=== PATIENT | female | born 1960 | race Caucasian/White ===

== ENCOUNTER → 2018-05-04 11:31 | Outpatient (CLI) | payer OTHER, SELFPAY ==
--- NOTE | 2018-05-04 | DI.CT.S_ITS ---
PROCEDURE: CT ABDOMEN WO/W CON INDICATIONS: UPPER ABDOMINAL PAIN TECHNIQUE: 4 phase scanning was performed. Non-contrast 5 mm axial sections acquired from the diaphragm to the iliac crests. Following the administration of intravenous contrast, 5 mm thick arterial-phase, portal venous-phase, and 5-minute delayed phase images were acquired through the liver. 5 mm thick coronal and sagittal reformats were performed. For radiation dose reduction, the following was used: automated exposure control, adjustment of mA and/or kV according to patient size. COMPARISON: None. FINDINGS: Image quality: Excellent. Lung bases: Lung bases are clear. Heart size is normal. Liver: No abnormality within the liver is found Other solid organs: Gallbladder is filled by numerous small and moderate sized gallstones, peripherally calcified, none of which appear obstructed at this time were associated with biliary distention.. Biliary system is non dilated. Pancreas is normal in morphology. Spleen is normal in size and enhancement. No adrenal nodules. Both kidneys demonstrate normal size and enhancement, without hydronephrosis or nephrolithiasis. Nodes and vessels: No retroperitoneal or mesenteric adenopathy by size criteria. Aorta and inferior vena cava are normal in size. Bowel and peritoneum: Unenhanced bowel loops are normal in caliber. No free fluid or air. Bones: No suspicious bony lesions. No vertebral body compression fractures. Miscellaneous: No ventral hernias. IMPRESSION: Gallbladder is stone filled by numerous small and moderate sized peripherally calcified gallstones but none of these appear associated with acute cholecystitis or biliary obstruction. No bowel abnormalities seen, and no area of active inflammation present. The right upper quadrant chronic pain syndrome almost certainly would be associated with the numerous gallstones present. They are of a size that could easily produce intermittent biliary obstruction or cystic duct obstruction. Dictated by: Fabio Villatoro M.D. on 05/04/2018 at 13:10 Approved by: Fabio Villatoro M.D. on 05/04/2018 at 13:16
== END ==
PROVIDERS: Family Provider Family Medicine; PCP Family Medicine; Visit Provider Family Medicine
DX: K80.80 Other cholelithiasis without obstruction (principal); R10.11 Right upper quadrant pain
CPT/HCPCS: 74170; Q9967

== ENCOUNTER 2018-06-12 08:45 | Day surgery (SDC) | payer OTHER, SELFPAY ==
[2018-06-12] VITALS (12 sets, daily range): BP systolic 99–182; BP diastolic 44–89; PULSE 45–60; RESP 10–16; TEMP 36.2–36.7; O2SAT 95–100
--- NOTE | 2018-06-12 | PATH_ITS ---
[facility] Accession Number: [id number] . 01 Material submitted: . GALLBLADDER . 02 Diagnosis: Gallbladder, Cholecystectomy: Cholelithiasis with mild chronic cholecystitis. One benign lymph node. Negative for dysplasia or malignancy. [facility]/06/14/2018 . 02 Electronically signed: . Federico Bejarano MD, PhD, Pathologist NPI- [id number] . 01 Gross description: . Received in formalin, labeled gallbladder, is an intact gallbladder (length-10.7 cm, diameter 3.3 cm) with green-yellow smooth and shiny serosa and a patent cystic duct. A possible lymph node (0.8 x 0.5 x 0.2 cm) is identified. The lumen contains green gelatinous bile and multiple vital yellow solid firm multifaceted smooth calculi (9.5 x 4.5 x 2.5 cm in aggregate, each approximately 0.7 x 0.7 x 0.7 cm) with dark celina cut surfaces. The mucosa is latham-green smooth and flat. The wall is up to 0.1 cm thick. No nodules, masses or lesions are identified. Section code: (A1) cystic duct resection margin and two serial sections from the body; (A2) two longitudinal sections from the fundus; (A3) one intact lymph node. ([id number]) /[facility] . 02 Pathologist provided ICD-10: K80.60 . 02 CPT . 228095 Performed at: 01 [facility] [address] [id number] MD Jeffry Billingsley MD Phone: [phone] Performed at: 02 [facility] [id number] [place] [id number] MD Davon Nicole MD Phone: [phone]
[2018-06-12] MEDS: LACTATED RINGERS 1,000 ML 100 ML IV (08:00)
--- NOTE | 2018-06-12 09:02 | PM.PREOP ---
Pre-operative Note Interval Note Pre-op Check: Yes History & Physical Reviewed by Physician and Yes Exam Performed Changes: No H&P completed within 30 days and has changed as indicated here:: Patient once again seen and examined. History physical examination on the chart dated May 24, 2018 has not changed. We will proceed with laparoscopic cholecystectomy as planned today.
[2018-06-12] MEDS: LACTATED RINGERS 1,000 ML 42 ML IV (09:28)
[2018-06-12] MEDS: CEFAZOLIN 2 GM/100 ML FROZ.PIGGY IV (09:28)
--- NOTE | 2018-06-12 09:59 | SUR.OPER ---
Supine on padded OR bed, head on pillow, safety belt at thigh, left and Right arm secured on padded arm oard <90 degrees abduction. Legs uncrossed. Tape over blanket to secure lower legs.
[2018-06-12] MEDS: LIDOCAINE 1% W/EPI INJ 20 ML INJ (10:15)
[2018-06-12] MEDS: BUPIVACAINE 0.25% (PF) VIAL 30 ML INJ (10:16)
--- NOTE | 2018-06-12 11:00 | PM.OP.1 ---
Operative Date/Time/Diagnoses Date of procedure: 06/12/18 Time of procedure: 11:00 Pre-op diagnosis: Symptomatic cholelithiasis and chronic cholecystitis Post-op diagnosis: same Procedure & Clinicians Procedure: Laparoscopic cholecystectomy Same procedure as scheduled: Yes Indications: 57-year-old female who presented with persistent epigastric pain and right upper quadrant pain. She was found have multiple gallstones on imaging. Examination and evaluation were consistent with chronic cholecystitis secondary to cholelithiasis. Laparoscopic cholecystectomy was recommended. Surgeon: Kerwin Mcclain Click Yes if Unassisted: Yes Anesthesia Type: General Operative Notes Findings: 1. Multiple gallstones completely filling the gallbladder lumen 2. Moderate gallbladder wall thickening 3. Mild gallbladder wall edema 4. Mildly intrahepatic gallbladder at the fundus Closure Type: primary Specimen(s): other (Gallbladder) Implants & Drains: None Estimated Blood Loss (mL): 50 Blood products transfused: none Procedure in detail: After obtaining informed consent the patient was brought to the operating room placed supine on the table. After satisfactory induction of anesthesia the abdomen was prepped and draped in usual sterile fashion. SCOAP time out was performed per standard protocol. A 1 :1 mixture 1% lidocaine with 1: 100,000 epinephrine and 0.5% plain Marcaine was injected in the skin and subcutaneous tissue at the superior aspect of the umbilicus for postoperative analgesia. Vertical midline incision was created with 11 scalpel blade for distance of approximately 3 cm at the superior aspect of the umbilicus. Blunt dissection revealed the rectus fascia which was also divided in the midline under direct visualization with 11 scalpel blade. Edges of the fascia were secured with Crystal clamps and elevated into the operative field. Interrupted 0 Vicryl suture were then placed superiorly and inferiorly to secure the fascia. Underlying peritoneum was entered between Teresa clamps under direct visualization and a blunt 12 mm Sears trocar was inserted. Carbon dioxide pneumoperitoneum was created and the abdomen was visually explored with a 30 degree 5 mm laparoscope. Findings are as above. Patient was placed in reverse Trendelenburg position and an appropriate site was chosen for placement of a 5 mm epigastric trocar. Area was anesthetized with local anesthesia, skin incision created with 11 scalpel blade, and trocar inserted to the right of the falciform ligament under direct visualization. In a similar fashion to other 5 mm trocars were placed in the right lateral abdomen. Ratcheted grasper was used to secure the fundus of the gallbladder and retracted superiorly and medially over the liver edge. Infundibulum of the gallbladder was secured with a Chilo grasper and retracted inferiorly and laterally. Meticulous dissection in the triangle of Calot was performed with a [place] dissector. Cystic duct was skeletonized of overlying connective tissue as was the cystic artery. Junction of these structures with the infundibulum of the gallbladder was clearly identified. Critical view of the liver bed through the avascular window between the structures was clearly obtained. Three clips were placed proximally on the cystic duct and 2 clips placed proximally on the artery. One clip was placed distally on each structure and then they were both divided with laparoscopic scissors. Monopolar cautery was used to remove the gallbladder from the hepatic bed. Specimen was placed in an endo-pouch and retrieved through the umbilical incision. Specimen was sent for permanent section. Liver bed was irrigated with copious amounts of sterile saline solution and hemostasis was achieved with cautery. Further irrigation revealed hemostasis and no evidence of any bile leak. Previously placed clips were meticulously examined and noted to be in good position without hemorrhage or bile leak as well. Patient was returned to supine position in the right upper quadrant was irrigated with copious amounts of sterile saline solution which was suctioned from the abdomen and noted to be clear. Instruments and trocars were removed under direct visualization and hemostasis noted. Carbon dioxide was evacuated. Fascia at the umbilical site was closed with the 0 Vicryl suture. Skin at all 4 incisions was then closed in a running subcuticular fashion with 4 0 Monocryl suture. Dermal adhesive was applied to the skin. Anesthesia was reversed and the patient extubated in the operating room. She was taken recovery in stable condition. Complications: none Condition: stable Disposition: PACU Plan for aftercare: 1. Discharge to home 2. Follow up in surgery Clinic in 2 weeks
[2018-06-12] MEDS: fentaNYL 100 MCG/2 ML INJ 50 MCG IV ×2 (11:10→11:18)
--- NOTE | 2018-06-12 11:13 | SUR.PHASEI ---
oxygen satureation decreased to 89% after pain mediction, easily arrousable to verbal stimuli encouraged to take deep breath. oxygen via nasal cannula applied at 2L.
--- NOTE | 2018-06-12 11:15 | SUR.PHASEI ---
maintaining o2 sat >94% with oxygen at 2l/cannula
[2018-06-12] MEDS: OXYCODONE/ACETAMINOPHEN 5/325 TABLET 1 TAB PO (11:47)
--- NOTE | 2018-06-12 12:04 | SUR.PHASEII ---
Patient resting in bed with and daughter at bedside. Tolerating po fluids and crackers. Denies nausea. Patient remains drowsy. Vital signs stable. Bed in locked and low position, call light within reach.
[2018-06-12] MEDS: ONDANSETRON 4 MG/2 ML INJ IV (12:05)
== END 2018-06-12 12:32 | disposition home or self-care (01) ==
PROVIDERS: Family Provider Family Medicine; PCP Family Medicine; Visit Provider Surgery
PROC: 0FT44ZZ Resection of Gallbladder, Percutaneous Endoscopic Approach (ICD-10-PCS; CPT 47562; principal; 2018-06-12 09:45)
DX: K80.10 Calculus of gallbladder with chronic cholecystitis without obstruction (principal)
CPT/HCPCS: 47562; J0690; J1100; J2250; J2405; J2704; J3010

== ENCOUNTER → 2018-12-13 15:12 | Outpatient (CLI) | payer OTHER, SELFPAY ==
--- NOTE | 2018-12-13 | DI.MG.S_ITS ---
BILATERAL DIGITAL SCREENING MAMMOGRAM 3D/2D WITH CAD: 12/13/2018 CLINICAL: Routine screening. Comparison is made to exams dated: 11/10/2017 mammogram, 08/31/2016 mammogram, and 07/21/2015 mammogram - [facility]. There are scattered fibroglandular elements in both breasts. Current study was also evaluated with a Computer Aided Detection (CAD) system. No significant masses, calcifications, or other findings are seen in either breast. There has been no significant interval change. IMPRESSION: NEGATIVE There is no mammographic evidence of malignancy. A 1 year screening mammogram is recommended. This exam was interpreted at Station ID: [id number]. NOTE: For mammograms, a report in lay terms will be sent to the patient. Approximately 15% of breast malignancies will not be visualized mammographically. In the management of a palpable breast mass, a negative mammogram must not discourage biopsy of a clinically suspicious lesion. Electronically Signed By: Sivakumar barraza/jessica:12/13/2018 16:31:25 letter sent: Normal Exam ACR BI-RADS Category 1: Negative 3341F
== END ==
PROVIDERS: Family Provider Specialist; PCP Family Medicine; Visit Provider Nurse Practitioner Family
DX: Z12.31 Encounter for screening mammogram for malignant neoplasm of breast (principal)
CPT/HCPCS: 77063; 77067

== ENCOUNTER 2019-08-12 14:07 | Day surgery (SDC) | payer OTHER, SELFPAY ==
--- NOTE | 2019-08-12 | PATH_ITS ---
[facility] Accession Number: [id number] . 01 Material submitted: . PART A: colon - CECAL BIOPSIES PART B: colon - ASCENDING COLON BIOPSIES PART C: colon - HEPATIC FLEXURE BIOPSY PART D: colon - TRANSVERSE COLON BIOPSY PART E: colon - SPLENIC FLEXURE COLON BIOPSY PART F: colon - DESCENDING COLON BIOPSY PART G: colon - SIGMOID COLON BIOPSY PART H: rectum - RECTUM BIOPSY . 02 Diagnosis: A-H: Cecum, Ascending Colon, Hepatic Flexure, Transverse Colon, Splenic Flexure, Descending Colon, Sigmoid Colon, Rectum, Biopsies: Colonic mucosa with no diagnostic abnormality. Negative for active, chronic and microscopic colitis. Negative for dysplasia and malignancy. [facility] 08/14/2019 1047 Local . 02 Electronically signed: . Alyssa Thakkar MD, Pathologist NPI- [id number] . 01 Gross description: . Part A: CECAL BIOPSIES: Received in formalin is 1 fragment(s) of latham, soft tissue measuring 0.4 x 0.2 x 0.1 cm submitted entirely in 1 cassette(s) Part B: ASCENDING COLON BIOPSIES: Received in formalin are 3 fragment(s) of ltaham, soft tissue measuring 0.2 x 0.2 x 0.1 cm to 0.1 x 0.1 x 0.1 cm submitted entirely in 1 cassette(s) Part C: HEPATIC FLEXURE BIOPSY: Received in formalin are 2 fragment(s) of latham, soft tissue measuring 0.3 x 0.2 x 0.1 cm to 0.1 x 0.1 x 0.1 cm submitted entirely in 1 cassette(s) Part D: TRANSVERSE COLON BIOPSY: Received in formalin are 2 fragment(s) of latham, soft tissue measuring 0.2 x 0.1 x 0.1 cm to 0.1 x 0.1 x 0.1 cm submitted entirely in 1 cassette(s) Part E: SPLENIC FLEXURE COLON BIOPSY: Received in formalin is 1 fragment(s) of latham, soft tissue measuring 0.1 x 0.1 x 0.1 cm submitted entirely in 1 cassette(s) Part F: DESCENDING COLON BIOPSY: Received in formalin is 1 fragment(s) of latham, soft tissue measuring 0.3 x 0.2 x 0.1 cm submitted entirely in 1 cassette(s) Part G: SIGMOID COLON BIOPSY: Received in formalin are 4 fragment(s) of latham, soft tissue measuring 0.3 x 0.2 x 0.1 cm to 0.1 x 0.1 x 0.1 cm submitted entirely in 1 cassette(s) Part H: RECTUM BIOPSY: Received in formalin is 1 fragment(s) of latham, soft tissue measuring 0.2 x 0.1 x 0.1 cm submitted entirely in 1 cassette(s) /[facility] 08/13/2019 0509 Local . 02 Pathologist provided ICD-10: R10.9, R19.7 . 02 CPT . 205820, 385483, 850238, 882303, 545547, 937046, 143461, 130070 Performed at: 01 [facility] [address] [address] [id number] MD Jeffry Billingsley MD Phone: [phone] Performed at: 02 [facility] [address] [place], [place] [id number] MD Alyssa Thakkar MD Phone: [phone]
[2019-08-12 14:59] VITALS: BP 158/86; PULSE 67; RESP 16; TEMP 36.8; O2SAT 99; BMI 28.6
[2019-08-12] MEDS: SODIUM CHLORIDE 0.9% 1,000 ML 200 ML IV (15:10)
--- NOTE | 2019-08-12 15:52 | PM.PREOP ---
Pre-operative Note Interval Note History & Physical reviewed/Exam performed by Physician: Yes Changes to H&P: No ASA Class (for procedural sedation): II
--- NOTE | 2019-08-12 15:52 | PM.OP.ENDO ---
Operative Date/Time/Diagnoses Date of procedure: 08/12/19 Time of procedure: 15:52 Pre-op diagnosis: 1. History of colon polyps 2. Screening for colon cancer 3. Abdominal pain 4. Diarrhea Post-op diagnosis: same (1. Normal colonoscopy, 2. Sigmoid diverticulosis) Procedure & Clinicians Study performed: Colonoscopy Same procedure as scheduled: Yes Indications: 1. History of colon polyps 2. Screening for colon cancer 3. Abdominal pain 4. Diarrhea Surgeon: Luma Nieto Procedure Notes SCOAP/Timeout: 16:00 Procedure in detail: ENDOSCOPIST: Luma Nieto MD Sedation RN: Cathie Ferrer RN Sedation start time: 4:00 p.m. Sedation and time: 4:28 p.m. PROCEDURE: Colonoscopy with biopsy INDICATIONS: 1. History of colon polyps 2. Screening for colon cancer 3. Abdominal pain 4. Diarrhea MEDICATION: Levsin 0.125 mg sublingual, incremental doses of Versed and fentanyl until appropriate level sedation achieved. ASA CLASS: 2 CECAL WITHDRAWAL TIME: 17 minutes COMPLICATIONS: None. EXTENT OF PROCEDURE: Cecum. QUALITY OF PREP: Good with portions of liquid stool. PROCEDURE: Prior to insertion of the colonoscope, a digital rectal examination was accomplished with circumferential palpation of the distal rectal mucosa without significant findings being noted. The high-definition pediatric colonoscope was passed into the rectum in the usual fashion and advanced over to the cecum without difficulty. The ileocecal valve, appendiceal stoma, and medial wall all could be inspected and no abnormalities were seen. Random biopsies were taken throughout withdrawal. ASCENDING COLON: As the colonoscope was withdrawn, care was taken to expose and inspect the haustral folds and no abnormalities were seen. HEPATIC FLEXURE: Normal no polyps, diverticula or other abnormalities. TRANSVERSE COLON: Normal no polyps, diverticula or other abnormalities. DESCENDING COLON: Normal no polyps, diverticula or other abnormalities. SIGMOID COLON: Minor diverticulosis, otherwise, no polyps or other abnormalities. RECTUM: Normal. J maneuver was produced. There was no significant perianal disease. The J maneuver was broken. The remainder of the rectum was inspected and there was no external hemorrhoid disease. The scope was withdrawn. IMPRESSION: 1. Normal colonoscopy 2. Sigmoid diverticulosis, mild PLAN: 1. Follow-up in clinic status post pathology results. The possibility of a missed lesion including a malignancy has been discussed with the patient previously. Potential alarm symptoms have been discussed and should be reported immediately. Scope withdrawal time: 17 minutes Sedation minutes: 28 Findings: diverticulosis Specimen(s): other (random, pancolonic) Complications: none Impression: As above. Post-procedure Recommendations: Will call with biopsy results Follow up: weeks (2) Disposition: PACU
[2019-08-12] MEDS: MIDAZOLAM 5 MG/5 ML VIAL IV (16:04)
[2019-08-12] MEDS: fentaNYL 250 MCG/5 ML INJ IV (16:04)
[2019-08-12 16:37] VITALS: BP 137/80; PULSE 57; RESP 16; TEMP 36.4; O2SAT 100
== END 2019-08-12 17:00 | disposition home or self-care (01) ==
PROVIDERS: Family Provider Family Medicine; PCP Family Medicine; Visit Provider Student in an Organized Health Care Education/Training Program
PROC: 0DJD8ZZ Inspection of Lower Intestinal Tract, Via Natural or Artificial Opening Endoscopic (ICD-10-PCS; CPT 45378; principal; 2019-08-12 16:00)
DX: R10.9 Unspecified abdominal pain (principal); R19.7 Diarrhea, unspecified; Z86.010 Personal history of colon polyps; K57.30 Diverticulosis of large intestine without perforation or abscess without bleeding
CPT/HCPCS: 45378; J2250; J3010

== ENCOUNTER → 2020-11-09 11:03 | Outpatient (CLI) | payer BC, SELFPAY ==
--- NOTE | 2020-11-09 11:10 | DI.MG.S_ITS ---
BILATERAL DIGITAL SCREENING MAMMOGRAM 3D/2D WITH CAD: 11/09/2020 CLINICAL: Routine screening. Comparison is made to exams dated: 12/13/2018 mammogram, 11/10/2017 mammogram, and 08/31/2016 mammogram - [facility]. There are scattered fibroglandular elements in both breasts. Current study was also evaluated with a Computer Aided Detection (CAD) system. No significant masses, calcifications, or other findings are seen in either breast. There has been no significant interval change. IMPRESSION: NEGATIVE There is no mammographic evidence of malignancy. A 1 year screening mammogram is recommended. This exam was interpreted at Station ID: [id number]. NOTE: For mammograms, a report in lay terms will be sent to the patient. Approximately 15% of breast malignancies will not be visualized mammographically. In the management of a palpable breast mass, a negative mammogram must not discourage biopsy of a clinically suspicious lesion. Electronically Signed By: Abhay Parson M.D., jr/jessica:11/09/2020 11:35:24 letter sent: Normal Exam ACR BI-RADS Category 1: Negative 3341F
== END ==
PROVIDERS: PCP Student in an Organized Health Care Education/Training Program; Referring Provider Specialist; Visit Provider Specialist
DX: Z12.31 Encounter for screening mammogram for malignant neoplasm of breast (principal)
CPT/HCPCS: 77063; 77067

== ENCOUNTER 2021-06-27 07:48 | Emergency (ER) | payer BC, SELFPAY ==
[2021-06-27] VITALS (27 sets, daily range): BP systolic 104–160; BP diastolic 60–80; PULSE 62–101; RESP 12–22; TEMP 36.6; O2SAT 93–100; BMI 27.3
--- NOTE | 2021-06-27 08:15 | ED.ABDPAIN ---
HPI - Abdominal Pain General Chief Complaint: Nausea/Vomiting/Diarrhea Stated Complaint: nausea/vomitting/chills/diarrhea/weak x 15 days Time Seen by Provider: 06/27/21 08:01 History of Present Illness HPI narrative: Patient is a 61-year-old female who presents with nausea ongoing since June 05 which is progressively gotten worse since June 12. She says that she has lost 15 lb. Every time she eats or drinks any drinks anything she throws up. She has been seen by her primary care provider she has been tested for COVID numerous time she is vaccinated. She is chilled but has never had any fever the take her temperature every day. She denies any chest congestion for pain. She is still having some bowel movements. She does have some mild epigastric pain. She has little dizzy and lightheaded she is still urinating but it is decreased. She is trying to drink fluids but they frequently come up as well Related Data Home Medications Medication Instructions Recorded Confirmed acyclovir 400 mg PO .prn 05/24/18 08/12/19 carvedilol 12.5 mg tablet (Coreg) 12.5 mg PO BID 05/24/18 08/12/19 cholecalciferol (vitamin D3) 2,000 mg PO DAILY 05/24/18 08/12/19 cyclosporine 0.05 % eye drops 1 drop EYE-BOTH DAILY ml 02/21/19 08/12/19 (Restasis MultiDose) losartan 100 mg tablet 100 mg PO DAILY 02/21/19 08/12/19 Allergies Allergy/AdvReac Type Severity Reaction Status Date / Time sulindac [From CLINORIL] Allergy Unknown Hives Verified 08/12/19 15:16 Tetracyclines [TETRACYCLINES] Allergy Unknown Hives Verified 08/12/19 15:16 Review of Systems Review of Systems Narrative: GENERAL:+ weight loss,+ fatigue Denies chills, fatigue, malaise, fever, sweats, travel HEENT: Denies sinus pain, ear pain, sore throat, difficulty swallowing, neck pain RESPIRATORY: Denies dyspnea, cough, wheezing, hemoptysis, sputum. CARDIOVASCULAR: Denies chest pain, palpitations, orthopnea, edema GASTROINTESTINAL: See HPI : Denies dysuria, frequency, incontinence, hematuria, urinary retention, flank pain. MUSCULOSKELETAL: Denies weakness, joint pain, or bony pain SKIN: No rash, no erythema, no pruritus NEUROLOGIC: Denies weakness, dizziness, headache, numbness, change in speech, confusion PSYCHIATRIC: No concerning psychosocial issues. 12 point review of systems is negative except for those stated above and HPI Patient History Medical History (Updated 06/27/21 @ 15:45 by Aruna Babb DO) Cholelithiasis Dry eyes Fibromyalgia Postmenopausal Surgical History (Updated 06/06/18 @ 07:49 by Kelly Peck RN) History of colonoscopy History of endometrial ablation History of esophagogastroduodenoscopy (EGD) Status post endometrial ablation Status post knee surgery Family History Mother Hypertension Heart disease Gallstones Ovarian cancer Father Hypertension Heart disease Sister Ovarian cancer Social History household members: spouse Smoking Status: Unknown if ever smoked alcohol intake: current Smoking Status: Unknown if ever smoked Substance Use Type: does not use Exam Initial Vital Signs Initial Vital Signs: Vital Signs Pulse Rate 84 06/27/21 07:59 Blood Pressure 127/78 06/27/21 07:59 Pulse Oximetry 97 06/27/21 07:59 GENERAL: Well-appearing, well-nourished and in no acute distress. HEENT: Head atraumatic,EOMI, pupils reactive, face symmetric, moist mucous membranes CARDIOVASCULAR: Regular rate and rhythm without murmurs, rubs or gallops. RESPIRATORY: Breath sounds equal bilaterally, no wheezes rales or rhonchi. ABDOMEN: Soft, nontender. Normoactive bowel sounds all 4 quadrants. No guarding or rebound. : No CVA tenderness EXTREMITIES: Normal range of motion, no clubbing or edema. Neurovascularly intact NEUROLOGICAL: Alert and oriented x4.Normal gait and speech. SKIN: Warm, dry, no laceration, no petechiae, no rashes or lesions. Course Orders Ordered: ED Orders 06/27/21 10:58 Creatinine Urine Random Stat Potassium Urine Random Stat Sodium Urine Random Stat 06/27/21 11:01 Ictotest Urine Stat Urine Microscopic Stat 06/27/21 11:02 Urine Culture Stat 06/27/21 17:11 Basic Metabolic Panel Stat Sodium Chloride (Normal Saline 0.9%) 1,000 mls @ 1,000 mls/hr IV CONT ANNA Last Infusion: 06/27/21 10:01 Dose: 0 mls/hr Documented by: Admin: 06/27/21 08:47 Dose: 1,000 mls/hr Documented by: TIARRA Sodium Chloride (Normal Saline 0.9%) 1,000 mls @ 100 mls/hr IV CONT ANNA Last Infusion: 06/27/21 18:47 Dose: 0 mls/hr Documented by: Admin: 06/27/21 10:05 Dose: 100 mls/hr Documented by: TIARRA Sodium Chloride (Normal Saline 0.9%) 1,000 mls @ 100 mls/hr IV CONT ANNA Last Infusion: 06/27/21 19:02 Dose: 0 mls/hr Documented by: Admin: 06/27/21 19:01 Dose: 100 mls/hr Documented by: TIARRA Discontinued Medications Ondansetron HCl (Ondansetron 4 Mg/2 Ml Inj) 4 mg IV NOW ONE Stop: 06/27/21 08:17 Last Admin: 06/27/21 08:48 Dose: 4 mg Documented by: TIARRA Ondansetron HCl (Ondansetron 4 Mg/2 Ml Inj) 4 mg IV NOW ONE Stop: 06/27/21 18:47 Last Admin: 06/27/21 19:01 Dose: 4 mg Documented by: TIARRA Pantoprazole Sodium (Pantoprazole 40 Mg Vial) 40 mg IV NOW ONE Stop: 06/27/21 08:17 Last Admin: 06/27/21 08:48 Dose: 40 mg Documented by: TIARRA Vital Signs Vital signs: Vital Signs - 8 hr 06/27/21 11:30 06/27/21 12:00 06/27/21 12:30 Pulse Rate 66 68 62 Respiratory Rate 13 12 18 Blood Pressure 128/69 127/69 130/74 Pulse Oximetry 97 97 98 06/27/21 13:00 06/27/21 13:01 06/27/21 13:30 Pulse Rate 67 67 68 Respiratory Rate 14 21 22 Blood Pressure 160/73 H 128/66 Pulse Oximetry 99 98 98 06/27/21 14:00 06/27/21 14:30 06/27/21 15:00 Pulse Rate 66 68 64 Respiratory Rate 14 17 17 Blood Pressure 135/74 131/72 141/77 H Pulse Oximetry 97 97 98 06/27/21 15:30 06/27/21 16:00 06/27/21 16:28 Pulse Rate 67 66 65 Respiratory Rate 12 17 16 Blood Pressure 126/69 127/74 Pulse Oximetry 98 97 97 06/27/21 16:30 06/27/21 17:00 06/27/21 17:30 Pulse Rate 64 72 67 Respiratory Rate 15 14 17 Blood Pressure 144/70 H 110/60 Pulse Oximetry 97 97 98 06/27/21 18:00 Pulse Rate 66 Respiratory Rate 15 Blood Pressure Pulse Oximetry 98 MDM - Abdominal Pain Lab Data Result diagrams: 06/27/21 08:12 06/27/21 17:11 Labs: Lab Results 06/27/21 06/27/21 06/27/21 Range/Units 07:58 08:12 08:12 WBC 10.1 (4.5-11.0) X10^3/uL RBC 4.22 (4.0-5.2) X10^6/uL Hgb 12.9 (12.0-16.0) g/dL Hct 38.5 (36-46) % MCV 91.2 (80-100) fL MCH 30.6 (26-34) PG MCHC 33.5 (30-36) % RDW 12.5 (11.6-14.8) % Plt Count 322 (150-400) X10^3/uL Neut % (Auto) 72.9 (50-75) % Lymph % (Auto) 16.0 L (25-40) % [place] % (Auto) 6.6 (3-14) % Eos % (Auto) 3.7 (2-4) % Baso % (Auto) 0.8 (0-2) % Neut # (Auto) 7300 H (3438-0710) /uL Lymph # (Auto) 1600 (2623-8288) /uL [place] # (Auto) 700 (0-900) /uL Eos # (Auto) 400 (0-450) /uL Baso # (Auto) 100 (0-100) /uL Sodium 143 (137-145) mmol/L Potassium 4.9 (3.4-5.1) mmol/L Chloride 110 H (98-107) mmol/L Carbon Dioxide 16 L (22-32) mmol/L BUN 80 H (7-17) mg/dL Creatinine 6.52 H (0.52-1.04) mg/dL Estimated GFR 6.5 L (>60) mL/min BUN/Creatinine Ratio 12.3 (6-22) Glucose 146 H (80-110) mg/dL Calcium 10.4 H (8.4-10.2) mg/dL Total Bilirubin 0.6 (0.2-1.3) mg/dL AST 23 (14-36) IU/L ALT 20 (<35) IU/L Alkaline Phosphatase 104 (38-126) U/L Total Protein 9.7 H* (6.3-8.2) g/dL Albumin 4.7 (3.5-5.0) g/dL Globulin 5.0 H (1.7-4.1) g/dL Albumin/Globulin Ratio 0.9 L (1.0-2.8) Lipase 634 H (23-300) U/L Procalcitonin (<0.5) ng/mL Ur Bilirubin Confirm (Negative) Urine RBC (0-5/HPF) Urine WBC (0-5/HPF) Ur Squamous Epith Cells (0-5/HPF) Urine Bacteria (None) WBC Casts (None) Ur Culture Indicated? Ur Random Sodium (30-90) mmol/L Ur Random Potassium mmol/L Urine Creatinine mg/dL SARS-CoV-2 (PCR) Negative (Negative) 06/27/21 06/27/21 06/27/21 Range/Units 08:19 10:58 11:01 WBC (4.5-11.0) X10^3/uL RBC (4.0-5.2) X10^6/uL Hgb (12.0-16.0) g/dL Hct (36-46) % MCV (80-100) fL MCH (26-34) PG MCHC (30-36) % RDW (11.6-14.8) % Plt Count (150-400) X10^3/uL Neut % (Auto) (50-75) % Lymph % (Auto) (25-40) % [place] % (Auto) (3-14) % Eos % (Auto) (2-4) % Baso % (Auto) (0-2) % Neut # (Auto) (2981-3912) /uL Lymph # (Auto) (1388-3889) /uL [place] # (Auto) (0-900) /uL Eos # (Auto) (0-450) /uL Baso # (Auto) (0-100) /uL Sodium (137-145) mmol/L Potassium (3.4-5.1) mmol/L Chloride (98-107) mmol/L Carbon Dioxide (22-32) mmol/L BUN (7-17) mg/dL Creatinine (0.52-1.04) mg/dL Estimated GFR (>60) mL/min BUN/Creatinine Ratio (6-22) Glucose (80-110) mg/dL Calcium (8.4-10.2) mg/dL Total Bilirubin (0.2-1.3) mg/dL AST (14-36) IU/L ALT (<35) IU/L Alkaline Phosphatase (38-126) U/L Total Protein (6.3-8.2) g/dL Albumin (3.5-5.0) g/dL Globulin (1.7-4.1) g/dL Albumin/Globulin Ratio (1.0-2.8) Lipase (23-300) U/L Procalcitonin 0.135 (<0.5) ng/mL Ur Bilirubin Confirm (Negative) Urine RBC 1-5/hpf (0-5/HPF) Urine WBC 30-100/hpf H (0-5/HPF) Ur Squamous Epith Cells 1-5 /hpf (0-5/HPF) Urine Bacteria Moderate (10-30) H (None) WBC Casts 1-5/lpf H (None) Ur Culture Indicated? Culture not indicate Ur Random Sodium 45 (30-90) mmol/L Ur Random Potassium 35.5 mmol/L Urine Creatinine 109.6 mg/dL SARS-CoV-2 (PCR) (Negative) 06/27/21 06/27/21 Range/Units 11:01 17:11 WBC (4.5-11.0) X10^3/uL RBC (4.0-5.2) X10^6/uL Hgb (12.0-16.0) g/dL Hct (36-46) % MCV (80-100) fL MCH (26-34) PG MCHC (30-36) % RDW (11.6-14.8) % Plt Count (150-400) X10^3/uL Neut % (Auto) (50-75) % Lymph % (Auto) (25-40) % [place] % (Auto) (3-14) % Eos % (Auto) (2-4) % Baso % (Auto) (0-2) % Neut # (Auto) (2660-0920) /uL Lymph # (Auto) (4822-0285) /uL [place] # (Auto) (0-900) /uL Eos # (Auto) (0-450) /uL Baso # (Auto) (0-100) /uL Sodium 145 (137-145) mmol/L Potassium 4.8 (3.4-5.1) mmol/L Chloride 115 H (98-107) mmol/L Carbon Dioxide 19 L (22-32) mmol/L BUN 73 H (7-17) mg/dL Creatinine 5.86 H (0.52-1.04) mg/dL Estimated GFR 7.3 L (>60) mL/min BUN/Creatinine Ratio 12.5 (6-22) Glucose 100 (80-110) mg/dL Calcium 9.5 (8.4-10.2) mg/dL Total Bilirubin (0.2-1.3) mg/dL AST (14-36) IU/L ALT (<35) IU/L Alkaline Phosphatase (38-126) U/L Total Protein (6.3-8.2) g/dL Albumin (3.5-5.0) g/dL Globulin (1.7-4.1) g/dL Albumin/Globulin Ratio (1.0-2.8) Lipase (23-300) U/L Procalcitonin (<0.5) ng/mL Ur Bilirubin Confirm Negative (Negative) Urine RBC (0-5/HPF) Urine WBC (0-5/HPF) Ur Squamous Epith Cells (0-5/HPF) Urine Bacteria (None) WBC Casts (None) Ur Culture Indicated? Ur Random Sodium (30-90) mmol/L Ur Random Potassium mmol/L Urine Creatinine mg/dL SARS-CoV-2 (PCR) (Negative) Point of care testing: Urine Dip Bedside Urine Glucose Negative Bedside Urine Bilirubin - Negative Bedside Urine Ketone - Negative Urine Specific [place] 1.020 Bedside Urine Occult Blood +/- Bedside Urine pH 6.0 Bedside Urine Protein + 30 Bedside Urine Urobilinogen - Negative Bedside Urine Nitrite - Negative Bedside Urine Leukocytes + [address] scan - abdomen/pelvis: Radiologist's Impression: PROCEDURE:? CT ABDOMEN PELVIS WO CON ? INDICATIONS:? ongoing nausea and epigastric pain ? TECHNIQUE:? Axial sections were acquired from the lung bases to the pubic symphysis.? Coronal and sagittal reformats were performed.? For radiation dose reduction, the following was used:? automated exposure control, adjustment of mA and/or kV according to patient size.? ? COMPARISON:? ? None. ? FINDINGS: ? Lower thorax: The lung bases are clear.? Heart size normal.? Small hiatal hernia. ? Liver:? Normal in size and attenuation. No contour deformity present. ? Biliary system:? Cholecystectomy.? No intra or extrahepatic bile duct dilation. ? Pancreas:? Unremarkable without mass or inflammation evident. ? Spleen:? Normal in size and density. ? Adrenals:? Normal morphology and density. ? Reproductive system:? Unremarkable as visualized. ? Urinary system:? Normal renal size and attenuation. No renal calculi, hydronephrosis, or solid mass present.? Urinary bladder unremarkable. ? Gastrointestinal system:? The bowel appears unremarkable with no evidence of bowel obstruction or inflammation. The stomach appears unremarkable.? Multiple diverticula arise from the sigmoid colon without evidence of diverticulitis. ? ? Appendix:? Normal appendix identified.? No evidence of appendicitis. ? Peritoneal spaces:? No mesenteric or retroperitoneal adenopathy.? No free air.? No free fluid.? ? Vasculature:? The IVC, aorta and iliac vasculature are unremarkable. ? Musculoskeletal:? Normal bone mineralization.? No acute fractures.? Abdominal wall intact without evidence of ventral or inguinal hernias. ? IMPRESSION: ? 1. No acute CT abdomen or pelvis findings 2. Diverticulosis without evidence of diverticulitis 3. Cholecystectomy and small hiatal hernia. ? Approved by: Xiang Hodges M.D. on 06/27/2021 at 8:33? MDM Narrative Medical decision making narrative: Patient has been having nausea ongoing for a number of weeks not eating or drinking anything with significant weight loss. She is found to be in acute renal failure with creatinine of 6.5. It is unclear exactly what is causing her nausea and vomiting however her renal failure is likely pre renal, however FeNa 1.9%, suggesting intrinsic. She did show me on her phone blood work from April which shows a creatinine of 0.88 this is any new any acute change. CT does not show any abnormality. She is able to urinate. Does need to be transferred to higher level of care were dialysis is potentially available and Nephrology is readily able to consult. 10:53am Dr. Arana hospitalist at [facility] has been updated patient's symptoms test results and happily accepts patient for transfer Patient has been hemodynamically stable she has been receiving mild hydration. She actually did show improvement with blood work this afternoon creatinine went from 6.5-5.8. Discharge Plan Departure Patient Disposition: [facility] Clinical Impression: Acute renal failure Prescriptions: No Action losartan 100 mg tablet 100 mg PO DAILY RF: 0 Restasis MultiDose 0.05 % drops 1 drop EYE-BOTH DAILY RF: 0 carvedilol [Coreg] 12.5 mg tablet 12.5 mg PO BID RF: 0 cholecalciferol (vitamin D3) 2,000 mg PO DAILY RF: 0 acyclovir 400 mg PO .prn RF: 0 Referrals: Fransisco Rowland MD [Primary Care Provider] -
--- NOTE | 2021-06-27 08:16 | DI.CT.S_ITS ---
PROCEDURE: CT ABDOMEN PELVIS WO CON INDICATIONS: ongoing nausea and epigastric pain TECHNIQUE: Axial sections were acquired from the lung bases to the pubic symphysis. Coronal and sagittal reformats were performed. For radiation dose reduction, the following was used: automated exposure control, adjustment of mA and/or kV according to patient size. COMPARISON: None. FINDINGS: Lower thorax: The lung bases are clear. Heart size normal. Small hiatal hernia. Liver: Normal in size and attenuation. No contour deformity present. Biliary system: Cholecystectomy. No intra or extrahepatic bile duct dilation. Pancreas: Unremarkable without mass or inflammation evident. Spleen: Normal in size and density. Adrenals: Normal morphology and density. Reproductive system: Unremarkable as visualized. Urinary system: Normal renal size and attenuation. No renal calculi, hydronephrosis, or solid mass present. Urinary bladder unremarkable. Gastrointestinal system: The bowel appears unremarkable with no evidence of bowel obstruction or inflammation. The stomach appears unremarkable. Multiple diverticula arise from the sigmoid colon without evidence of diverticulitis. Appendix: Normal appendix identified. No evidence of appendicitis. Peritoneal spaces: No mesenteric or retroperitoneal adenopathy. No free air. No free fluid. Vasculature: The IVC, aorta and iliac vasculature are unremarkable. Musculoskeletal: Normal bone mineralization. No acute fractures. Abdominal wall intact without evidence of ventral or inguinal hernias. IMPRESSION: 1. No acute CT abdomen or pelvis findings 2. Diverticulosis without evidence of diverticulitis 3. Cholecystectomy and small hiatal hernia. Approved by: Xiang Hodges M.D. on 06/27/2021 at 8:33
[2021-06-27 08:28] LABS: Add Manual Diff / Slide Review NO; Basophils Absolute Auto 100 /uL (0-100); Basophils Percent Auto 0.8 % (0-2); Eosinophils Absolute Auto 400 /uL (0-450); Eosinophils Percent Auto 3.7 % (2-4); Hematocrit 38.5 % (36-46); Hemoglobin 12.9 g/dL (12.0-16.0); Lymphocytes Absolute Auto 1600 /uL (1100-4500); Mean Corpuscular HGB Conc 33.5 % (30-36); Mean Corpuscular Hemoglobin 30.6 PG (26-34); Mean Corpuscular Volume 91.2 fL (80-100); Monocytes Absolute Auto 700 /uL (0-900); Monocytes Percent Auto 6.6 % (3-14); Neutrophils Absolute Auto 7300 /uL (1500-7000); Neutrophils Percent Auto 72.9 % (50-75); Platelet Count 322 X10^3/uL (150-400); Red Blood Cell Count 4.22 X10^6/uL (4.0-5.2); Red Cell Distribution Width 12.5 % (11.6-14.8); White Blood Cell Count 10.1 X10^3/uL (4.5-11.0)
[2021-06-27 08:38] LABS: Alanine Aminotransferase 20 IU/L (<35); Albumin 4.7 g/dL (3.5-5.0); Albumin Globulin Ratio 0.9 (1.0-2.8); Alkaline Phosphatase 104 U/L (38-126); Aspartate Aminotransferase 23 IU/L (14-36); BUN Creatinine Ratio 12.3 (6-22); Bilirubin Total 0.6 mg/dL (0.2-1.3); Blood Urea Nitrogen 80 mg/dL (7-17); Calcium 10.4 mg/dL (8.4-10.2); Carbon Dioxide 16 mmol/L (22-32); Chloride 110 mmol/L (98-107); Estimated Glomerular Filt Rate 6.5 mL/min (>60); Glucose 146 mg/dL (80-110); HEMOLYSIS < 15 (0-50); Lipase 634 U/L (23-300); Potassium 4.9 mmol/L (3.4-5.1); Sodium 143 mmol/L (137-145)
[2021-06-27] MEDS: SODIUM CHLORIDE 0.9% 1,000 ML 1000 ML IV (08:47)
[2021-06-27] MEDS: ONDANSETRON 4 MG/2 ML INJ IV ×2 (08:48→19:01)
[2021-06-27] MEDS: PANTOPRAZOLE 40 MG VIAL IV (08:48)
[2021-06-27 08:52] LABS: Total Protein 9.7 g/dL (6.3-8.2)
[2021-06-27 09:09] LABS: Procalcitonin 0.135 ng/mL (<0.5)
[2021-06-27 09:22] LABS: COVID19 - ADMIT (NP swab/PCR) Negative (Negative)
[2021-06-27] MEDS: SODIUM CHLORIDE 0.9% 1,000 ML 100 ML IV ×2 (10:05→19:01)
[2021-06-27 11:21] LABS: Creatinine Urine Random 109.6 mg/dL; Potassium Urine Random 35.5 mmol/L; Sodium Urine Random 45 mmol/L (30-90)
[2021-06-27 11:36] LABS: Bacteria Urine Moderate (10-30); RBC Urine 1-5/HPF (0-5/HPF); Squamous Epithelial Cell Urine 1-5 /HPF (0-5/HPF); WBC Urine 30-100/HPF (0-5/HPF); White Blood Cell Casts Urine 1-5/LPF
[2021-06-27 11:37] LABS: Ictotest Urine Negative (Negative)
[2021-06-27 17:28] LABS: BUN Creatinine Ratio 12.5 (6-22); Blood Urea Nitrogen 73 mg/dL (7-17); Calcium 9.5 mg/dL (8.4-10.2); Carbon Dioxide 19 mmol/L (22-32); Chloride 115 mmol/L (98-107); Estimated Glomerular Filt Rate 7.3 mL/min (>60); Glucose 100 mg/dL (80-110); HEMOLYSIS < 15 (0-50); Potassium 4.8 mmol/L (3.4-5.1); Sodium 145 mmol/L (137-145)
== END 2021-06-27 19:04 | disposition short-term general hospital (02) ==
PROVIDERS: Emergency Provider Emergency Medicine; PCP Family Medicine
DX: N17.9 Acute kidney failure, unspecified (principal); R42 Dizziness and giddiness; R11.2 Nausea with vomiting, unspecified; R63.4 Abnormal weight loss; Z20.822 Contact with and (suspected) exposure to COVID-19
CPT/HCPCS: 36415; 74176; 80048; 80053; 81003; 81015; 82570; 83690; 84133; 84145; 84300; 85025; 87077; 87086; 87147; 87635; 96361; 96374; 96375; 96376; 99284; C9803; C9113; J2405

== ENCOUNTER → 2022-12-21 07:57 | Outpatient (CLI) | payer OTHER, SELFPAY ==
--- NOTE | 2022-12-21 | DI.MG.S_ITS ---
BILATERAL DIGITAL SCREENING MAMMOGRAM 3D/2D WITH CAD: 12/21/2022 CLINICAL: Routine screening. Family history of breast cancer. Comparison is made to exams dated: 11/09/2020 mammogram, 12/13/2018 mammogram, and 11/10/2017 mammogram - [facility]. There are scattered areas of fibroglandular density in both breasts (category b / 25%-50% glandular tissue). Current study was also evaluated with a Computer Aided Detection (CAD) system. No significant masses, calcifications, or other findings are seen in either breast. There has been no significant interval change. IMPRESSION: NEGATIVE There is no mammographic evidence of malignancy. A 1 year screening mammogram is recommended. Based on the Tyrer Cuzick model (a risk assessment model) the patient's lifetime risk is 8.5% and her 10 year risk is 3.8%. According to the ACR, ACS, and NCCN guidelines, an annual breast MRI exam along with mammogram is recommended if the patient's lifetime risk is 20% or greater. This exam was interpreted at Station ID: [id number]. NOTE: For mammograms, a report in lay terms will be sent to the patient. Approximately 15% of breast malignancies will not be visualized mammographically. In the management of a palpable breast mass, a negative mammogram must not discourage biopsy of a clinically suspicious lesion. Electronically Signed By: Marcellus steiner/jessica:12/21/2022 08:42:04 letter sent: Normal Exam ACR BI-RADS Category 1: Negative [id number]
== END ==
PROVIDERS: PCP Family Medicine; Referring Provider Family Medicine; Visit Provider Family Medicine
DX: Z12.31 Encounter for screening mammogram for malignant neoplasm of breast (principal); Z80.3 Family history of malignant neoplasm of breast
CPT/HCPCS: 77063; 77067

== ENCOUNTER → 2023-05-22 15:43 | Outpatient (CLI) | payer OTHER, SELFPAY ==
--- NOTE | 2023-05-22 | DI.RAD.S_ITS ---
PROCEDURE: XR LUMBAR SPINE 2-3V INDICATIONS: low back pain TECHNIQUE: 3 views of the lumbar spine were acquired. COMPARISON: None. FINDINGS: Bones: 5 [id number] vertebrae are present. There is normal bony alignment. Mild facet arthropathy at L5-S1. No vertebral body compression fractures. No suspicious bony lesions. Soft tissues: Overlying bowel gas pattern is normal. No suspicious soft tissue calcifications. Cholecystectomy clips. IMPRESSION: 1. No significant spondylosis or spondylolisthesis. 2. Lumbosacral facet arthropathy. Dictated by: Sarahy Wall M.D. on 05/22/2023 at 18:09 Approved by: Sarahy Wall M.D. on 05/22/2023 at 18:11
== END ==
PROVIDERS: PCP Family Medicine; Referring Provider Chiropractor; Visit Provider Chiropractor
DX: M47.817 Spondylosis without myelopathy or radiculopathy, lumbosacral region (principal); M54.50 Low back pain, unspecified
CPT/HCPCS: 72100

== ENCOUNTER → 2023-09-08 13:00 | Outpatient (ROUT) | payer OTHER, SELFPAY ==
[2023-09-08 13:54] LABS: Influenza A - CEPHEID Flu A NEGATIVE (NEGATIVE); Influenza B - CEPHEID Flu B NEGATIVE (NEGATIVE); Respiratory Syncytial Virus Negative (Negative)
[2023-09-08 13:55] LABS: COVID-19 CEPHEID 4-PLEX PCR POSITIVE (Negative)
== END ==
PROVIDERS: PCP Family Medicine; Visit Provider Family Medicine
DX: R05.1 Acute cough (principal)
CPT/HCPCS: 0241U

== ENCOUNTER 2023-09-20 18:14 | Emergency (ER) | payer OTHER, SELFPAY ==
[2023-09-20 18:41] VITALS: BP 187/88; PULSE 81; RESP 20; TEMP 36.9; O2SAT 99; BMI 29.2
[2023-09-20 19:16] VITALS: BP 180/81; PULSE 85; O2SAT 98
[2023-09-20 19:30] VITALS: BP 167/80; PULSE 76; RESP 18; O2SAT 98
[2023-09-20 19:31] LABS: Appearance Urine UA CLEAR; Bilirubin Urine UA NEGATIVE (NEGATIVE); Color Urine UA YELLOW; Glucose Urine UA NEGATIVE (Negative); Ketones Urine UA NEGATIVE (NEGATIVE); Leukocyte Esterase Urine UA NEGATIVE (NEGATIVE); Nitrite Urine UA NEGATIVE (Negative); Occult Blood Urine UA TRACE-INTACT (Negative); Protein Urine UA NEGATIVE (Negative); Specific Gravity Urine UA <=1.005 (1.000-1.035); Urobilinogen Urine UA 0.2 E.U./dL (0.2)
[2023-09-20 19:33] LABS: pH Urine UA 5.5 (4.5-8.0)
[2023-09-20 19:41] LABS: Bacteria Urine None Seen; RBC Urine 0-1/HPF (0-5/HPF); Squamous Epithelial Cell Urine 0-1 /HPF (0-5/HPF); WBC Urine None Seen (0-5/HPF)
[2023-09-20 19:42] LABS: Culture Indicated Urine Cult Not Indicated
[2023-09-20 20:00] VITALS: BP 195/85; PULSE 86; O2SAT 98
--- NOTE | 2023-09-20 20:01 | ED.GENADULT ---
HPI - General Adult General Chief complaint: Abdominal Pain Stated complaint: pain in abd had covid on 13th Time Seen by Provider: 09/20/23 19:55 Source: patient Mode of arrival: Ambulatory History of Present Illness HPI narrative: Patient is a 63-year-old female. She states that approximately 2 weeks ago she had COVID. It sounds like she had predominantly GI symptoms related with it. She was having abdominal pain. She saw her primary doctor. She states the abdominal pain has improved but not completely resolved. The rest of the symptoms she was having are either improving or resolved as well. She is here because she states that despite drinking quite a bit of fluid she has had a foul-smelling urine. She states that it smells like ammonia. No dysuria. She is feeling like she is emptying her bladder. No fevers. She has had an issue with an acute kidney injury in the past requiring hospital admission because of nausea and vomiting and was concerned that maybe there was kidney issues. Related Data Home Medications Medication Instructions Recorded Confirmed acyclovir 400 mg PO .prn cold sores 05/24/18 08/12/19 carvedilol 12.5 mg tablet (Coreg) 12.5 mg PO BID 05/24/18 08/12/19 cholecalciferol (vitamin D3) 2,000 mg PO DAILY 05/24/18 08/12/19 cyclosporine 0.05 % eye drops 1 drop EYE-BOTH DAILY 02/21/19 08/12/19 (Restasis MultiDose) losartan 100 mg tablet 100 mg PO DAILY 02/21/19 08/12/19 Allergies Allergy/AdvReac Type Severity Reaction Status Date / Time sulindac [From CLINORIL] Allergy Unknown Hives Verified 08/12/19 15:16 Tetracyclines [TETRACYCLINES] Allergy Unknown Hives Verified 08/12/19 15:16 Review of Systems Constitutional Constitutional: Reports system reviewed and no additional complaints, except as documented Cardiovascular Cardiovascular: Reports system reviewed and no additional complaints, except as documented Respiratory Respiratory: Reports system reviewed and no additional complaints, except as documented Gastrointestinal Gastrointestinal: Reports system reviewed and no additional complaints, except as documented Genitourinary Genitourinary: Reports system reviewed and no additional complaints, except as documented Integumentary/Breasts Skin/Breast: Reports system reviewed and no additional complaints, except as documented Hematologic/Lymphatic On Anticoagulants: No Patient History Medical History Postmenopausal Cholelithiasis Dry eyes Fibromyalgia Surgical History (Updated 06/06/18 @ 07:49 by Kelly Peck RN) History of endometrial ablation History of colonoscopy History of esophagogastroduodenoscopy (EGD) Status post knee surgery Status post endometrial ablation Family History Mother Hypertension Heart disease Gallstones Ovarian cancer Father Hypertension Heart disease Sister Ovarian cancer Social History household members: spouse Smoking Status: Former smoker alcohol intake: current Smoking Status: Former smoker alcohol intake frequency: holidays/special occasions only Substance Use Type: does not use Exam Initial Vital Signs Initial Vital Signs: Vital Signs Temperature 98.4 F 09/20/23 18:41 Pulse Rate 81 09/20/23 18:41 Respiratory Rate 20 09/20/23 18:41 Blood Pressure 187/88 H 09/20/23 18:41 Pulse Oximetry 99 09/20/23 18:41 Oxygen Delivery Method Room Air 09/20/23 18:41 HENMT Head: normal to inspection and normocephalic Resp Effort & Inspection: normal respiratory effort Auscultation: clear to auscultation bilaterally Cardio Rate: regular rate Rhythm: regular rhythm GI Inspection: non-distended Palpation: soft and No tender Back/Spine/Pelvis Back: No CVA tenderness Neuro General: patient alert, patient awake, patient oriented x3 and moves all extremities Course Orders Ordered: ED Orders 09/20/23 19:24 Urinalysis and Microscopic Stat 09/20/23 20:10 Basic Metabolic Panel Stat Complete Blood Count AUTO DIFF Stat Vital Signs Vital signs: Vital Signs - 8 hr 09/20/23 18:41 09/20/23 19:16 09/20/23 19:16 Temperature 98.4 F Pulse Rate 81 85 Respiratory Rate 20 Blood Pressure 187/88 H 180/81 H Pulse Oximetry 99 98 Oxygen Delivery Method Room Air 09/20/23 19:30 09/20/23 19:30 09/20/23 20:00 Temperature Pulse Rate 76 86 Respiratory Rate 18 Blood Pressure 167/80 H Pulse Oximetry 98 98 Oxygen Delivery Method 09/20/23 20:00 09/20/23 20:30 09/20/23 20:30 Temperature Pulse Rate 72 Respiratory Rate Blood Pressure 195/85 H 161/77 H Pulse Oximetry 98 Oxygen Delivery Method 09/20/23 21:00 09/20/23 21:00 Temperature Pulse Rate 72 Respiratory Rate Blood Pressure 175/79 H Pulse Oximetry 99 Oxygen Delivery Method Medical Decision Making Medical Records Medical records reviewed: Yes I reviewed the patient's medical records. Lab Data Lab results reviewed: Yes I reviewed the patient's lab results. 09/20/23 20:10 09/20/23 20:10 Labs: Lab Results 09/20/23 09/20/23 Range/Units 19:24 20:10 WBC 6.3 (4.5-11.0) X10^3/uL RBC 3.71 L (4.0-5.2) X10^6/uL Hgb 11.4 L (12.0-16.0) g/dL Hct 33.6 L (36-46) % MCV 90.7 (80-100) fL MCH 30.8 (26-34) PG MCHC 34.0 (30-36) % RDW 13.4 (11.6-14.8) % Plt Count 348 (150-400) X10^3/uL Neut % (Auto) 62.0 (50-75) % Lymph % (Auto) 26.0 (25-40) % [place] % (Auto) 8.1 (3-14) % Eos % (Auto) 3.1 (2-4) % Baso % (Auto) 0.8 (0-2) % Neut # (Auto) 3900 (1432-6227) /uL Lymph # (Auto) 1600 (0731-1173) /uL [place] # (Auto) 500 (0-900) /uL Eos # (Auto) 200 (0-450) /uL Baso # (Auto) 0 (0-100) /uL Sodium 137 (137-145) mmol/L Potassium 4.2 (3.4-5.1) mmol/L Chloride 102 (98-107) mmol/L Carbon Dioxide 30 (22-32) mmol/L BUN 19 H (7-17) mg/dL Creatinine 0.89 (0.52-1.04) mg/dL Estimated GFR > 60 (>60) mL/min BUN/Creatinine Ratio 21.3 (6-22) Glucose 100 (80-110) mg/dL Calcium 9.7 (8.4-10.2) mg/dL Urine Color Yellow Urine Appearance Clear Urine pH 5.5 (4.5-8.0) Ur Specific [place] <=1.005 (1.000-1.035) Urine Protein Negative (Negative) Urine Glucose (UA) Negative (Negative) g/dL Urine Ketones Negative (NEGATIVE) Urine Occult Blood Trace-intact (Negative) Urine Nitrate Negative (Negative) Urine Bilirubin Negative (NEGATIVE) Urine Urobilinogen 0.2 (0.2) E.U./dL Ur Leukocyte Esterase Negative (NEGATIVE) Urine RBC 0-1/hpf (0-5/HPF) Urine WBC None seen (0-5/HPF) Ur Squamous Epith Cells 0-1 /hpf (0-5/HPF) Urine Bacteria None seen (None) Ur Culture Indicated? Cult not indicated Urine Dip Bedside Urine Glucose Negative Bedside Urine Bilirubin - Negative Bedside Urine Ketone - Negative Urine Specific [place] 1.005 Bedside Urine Occult Blood +/- Bedside Urine pH 6 Bedside Urine Protein - Negative Bedside Urine Urobilinogen - Negative Bedside Urine Nitrite - Negative Bedside Urine Leukocytes - Negative Esterase Point of care testing: Urine Dip Bedside Urine Glucose Negative Bedside Urine Bilirubin - Negative Bedside Urine Ketone - Negative Urine Specific [place] 1.005 Bedside Urine Occult Blood +/- Bedside Urine pH 6 Bedside Urine Protein - Negative Bedside Urine Urobilinogen - Negative Bedside Urine Nitrite - Negative Bedside Urine Leukocytes - Negative Esterase MDM Narrative Medical decision making narrative: Patient has a benign abdominal exam. Urinalysis is unremarkable. Labs unremarkable. Creatinine is normal. No signs of infection. No signs of renal failure. She is tolerating oral intake. No indication for CT scans his her abdominal discomfort has been going on for several weeks in his actually improving. Will discharge patient home with return precautions and instructions to follow-up with her primary provider. Reassurance provided. She expressed understanding and agreement. Discharge Plan Departure Patient Disposition: Home Clinical Impression: Foul smelling urine Activity Restrictions/Additional Instructions: Your labs here in the emergency department show normal kidney function. There was no signs of a urinary tract infection. Recommend that you continue to increase your fluid intake and take all of your medicines as directed. Return to the emergency department for new symptoms. Prescriptions: No Action losartan 100 mg tablet 100 mg PO DAILY Restasis MultiDose 0.05 % drops 1 drop EYE-BOTH DAILY carvedilol [Coreg] 12.5 mg tablet 12.5 mg PO BID cholecalciferol (vitamin D3) 2,000 mg PO DAILY acyclovir 400 mg PO .prn Referrals: Elvira Rubalcava MD [Primary Care Provider] - Stand Alone Forms: Patient Portal/API
[2023-09-20 20:19] LABS: Add Manual Diff / Slide Review NO; Basophils Absolute Auto 0 /uL (0-100); Basophils Percent Auto 0.8 % (0-2); Eosinophils Absolute Auto 200 /uL (0-450); Eosinophils Percent Auto 3.1 % (2-4); Hematocrit 33.6 % (36-46); Hemoglobin 11.4 g/dL (12.0-16.0); Lymphocytes Absolute Auto 1600 /uL (1100-4500); Mean Corpuscular Hemoglobin 30.8 PG (26-34); Mean Corpuscular Volume 90.7 fL (80-100); Monocytes Absolute Auto 500 /uL (0-900); Monocytes Percent Auto 8.1 % (3-14); Neutrophils Absolute Auto 3900 /uL (1500-7000); Platelet Count 348 X10^3/uL (150-400); Red Blood Cell Count 3.71 X10^6/uL (4.0-5.2); Red Cell Distribution Width 13.4 % (11.6-14.8); White Blood Cell Count 6.3 X10^3/uL (4.5-11.0)
[2023-09-20 20:30] VITALS: BP 161/77; PULSE 72; O2SAT 98
[2023-09-20 20:31] LABS: BUN Creatinine Ratio 21.3 (6-22); Blood Urea Nitrogen 19 mg/dL (7-17); Calcium 9.7 mg/dL (8.4-10.2); Carbon Dioxide 30 mmol/L (22-32); Chloride 102 mmol/L (98-107); Estimated Glomerular Filt Rate > 60 mL/min (>60); Glucose 100 mg/dL (80-110); HEMOLYSIS < 15 (0-50); Potassium 4.2 mmol/L (3.4-5.1); Sodium 137 mmol/L (137-145)
[2023-09-20 21:00] VITALS: BP 175/79; PULSE 72; O2SAT 99
== END 2023-09-20 21:17 | disposition home or self-care (01) ==
PROVIDERS: Emergency Provider Emergency Medicine; PCP Family Medicine
DX: R82.90 Unspecified abnormal findings in urine (principal); Z86.16 Personal history of COVID-19
CPT/HCPCS: 36415; 80048; 81001; 81003; 85025; 99283

== ENCOUNTER → 2023-11-16 09:42 | Outpatient (CLI) | payer OTHER, SELFPAY ==
--- NOTE | 2023-11-16 09:43 | DI.RAD.S_ITS ---
Bone Density Report Name: JENNIFER LEOS Age: 63 Sex: Female Ethnicity: White Date of : 1960 Indication: postmenopausal; screening for osteoporosis; Referring Provider: URMILA WHITE Study: Bone densitometry was performed. Exam Date: November 16, 2023 Accession number: [id number] Bone Density: Region BMD T-score Z-score Classification AP Spine(L1-L4) 0.975 -0.7 1.1 Normal Femoral Neck (Left) 0.802 -0.4 1.1 Normal Total Hip (Left) 0.983 0.3 1.5 Normal Femoral Neck (Right) 0.873 0.2 1.7 Normal Total Hip (Right) 1.005 0.5 1.7 Normal Total Hip Mean 0.994 0.4 1.6 Normal World Health Organization criteria for BMD impression classify patients as: Normal (T-score at or above -1.0), Osteopenia (T-score between -1.0 and -2.5), or Osteoporosis (T-score at or below -2.5). 10-year Fracture Risk: FRAX not reported because: All T-scores for Spine Total, Hip Total, Femoral Neck at or above -1.0 Impression: The patient has normal bone mass. Discussion: BONE DENSITY IS ABOVE THE MINIMUM DESIRABLE LEVEL AT ALL SKELETAL SITES TESTED. This patient's bone mineral density is above the minimum desirable level (T-score -1.0 or better) at all sites measured. The patient should follow a healthful lifestyle (good nutrition with adequate calcium and vitamin D, and appropriate weight-bearing exercise). Follow-Up: Consider repeating this study in 5 years or sooner if there is some new clinical indication. Reported by: FIDE CERNA M.D. on 11/16/2023 10:03:00 AM.
== END ==
LOC: RAD 09:42
PROVIDERS: PCP Family Medicine; Referring Provider Family Medicine; Visit Provider Family Medicine
DX: M85.89 Other specified disorders of bone density and structure, multiple sites (principal)
CPT/HCPCS: 77080

== ENCOUNTER → 2023-12-28 16:09 | Outpatient (CLI) | payer OTHER, SELFPAY ==
--- NOTE | 2023-12-28 | DI.MG.S_ITS ---
BILATERAL DIGITAL SCREENING MAMMOGRAM 3D/2D WITH CAD: 12/28/2023 CLINICAL: Routine screening. Family history of breast cancer. Comparison is made to exams dated: 12/21/2022 mammogram, 12/13/2018 mammogram, and 11/09/2020 mammogram - [facility]. There are scattered areas of fibroglandular density in both breasts (category b / 25%-50% glandular tissue). Current study was also evaluated with a Computer Aided Detection (CAD) system. No significant masses, calcifications, or other findings are seen in either breast. There has been no significant interval change. IMPRESSION: NEGATIVE There is no mammographic evidence of malignancy. A 1 year screening mammogram is recommended. Based on the Tyrer Cuzick model (a risk assessment model) the patient's lifetime risk is 8.2% and her 10 year risk is 3.8%. According to the ACR, ACS, and NCCN guidelines, an annual breast MRI exam along with mammogram is recommended if the patient's lifetime risk is 20% or greater. This exam was interpreted at Station ID: [id number]. NOTE: For mammograms, a report in lay terms will be sent to the patient. Approximately 15% of breast malignancies will not be visualized mammographically. In the management of a palpable breast mass, a negative mammogram must not discourage biopsy of a clinically suspicious lesion. Electronically Signed By: Aida benedict/jessica:01/01/2024 10:04:17 letter sent: Normal Exam ACR BI-RADS Category 1: Negative 3341F
== END ==
PROVIDERS: PCP Family Medicine; Referring Provider Family Medicine; Visit Provider Family Medicine
DX: Z12.31 Encounter for screening mammogram for malignant neoplasm of breast (principal); Z80.3 Family history of malignant neoplasm of breast; R92.323 Mammographic fibroglandular density, bilateral breasts
CPT/HCPCS: 77063; 77067

== ENCOUNTER → 2025-02-03 08:09 | Outpatient (CLI) | payer MEDICARE, OTHER, SELFPAY ==
--- NOTE | 2025-02-03 08:12 | DI.MG.S_ITS ---
MM screening mammo BI: 02/03/2025. BI-RADS: 1 CLINICAL: 64-year old female for bilateral screening mammogram. Tyrer-Cuzick lifetime risk of 6.5%. No personal or first-degree family history of breast cancer. PRIOR EXAMS 12/28/2023, 12/21/2022, 11/09/2020, 12/13/2018. MAMMOGRAPHY TECHNIQUE: 2D and 3D (tomosynthesis) digital mammographic views obtained, with additional images as needed for full coverage. Current study was also evaluated with a Computer Aided Detection (CAD) system. DENSITY B. There are scattered areas of fibroglandular density. MAMMOGRAPHY FINDINGS Bilateral: No suspicious mass, asymmetry, microcalcification, or other abnormality seen. IMPRESSION: * No evidence of malignancy. RECOMMENDATIONS Bilateral * Annual screening mammography. OVERALL ASSESSMENT CATEGORY BI-RADS-1: Negative. The [employer] recommends annual screening mammography beginning at age 40 for women with average risk of breast cancer. ELECTRONICALLY SIGNED: Aayush Lyn M.D. on 02/03/2025 at 12:33:29 PM PT Interpreting Station ID: [id number]
== END ==
PROVIDERS: PCP Family Medicine; Referring Provider Family Medicine; Visit Provider Family Medicine
DX: Z12.31 Encounter for screening mammogram for malignant neoplasm of breast (principal)
CPT/HCPCS: 77063; 77067